=== PATIENT | male | born 1985 ===

== ENCOUNTER 2017-07-04 19:07 | Emergency (ER) | payer SELFPAY ==
[2017-07-04 19:26] VITALS: BP 143/89; PULSE 86; RESP 16; TEMP 98; O2SAT 100
--- NOTE | 2017-07-04 19:45 | ED PDOC ---
HPI: Psych/Substance Abuse Time Seen by Provider: 07/04/17 19:35 Chief Complaint (Nursing): Anxiety Chief Complaint (Provider): Anxiety History Per: Patient History/Exam Limitations: no limitations Onset/Duration Of Symptoms: Days (x 3) Current Symptoms Are (Timing): Still Present Additional Complaint(s): Jaziel is a 31 y/o male presenting to the ED for evaluation of anxiety. States that two night ago he awoke in the middle of the night feeling anxious and was unable to go back to sleep. He experienced cold sweats, mild shortness of breath and chest tightness, and states he felt tachycardic. Denies dizziness or vision changes, a fever or a rash. PMD: non-[facility] provider Past Medical History Reviewed: Historical Data, Nursing Documentation, Vital Signs Vital Signs: Last Vital Signs Temp 98.0 F 07/04/17 19:25 Pulse 86 07/04/17 19:25 Resp 16 07/04/17 19:25 BP 143/89 07/04/17 19:25 Pulse Ox 100 07/04/17 19:25 - Medical History PMH: Hypercholesterolemia - Surgical History Surgical History: No Surg Hx - Family History Family History: States: Unknown Family Hx - Social History Current smoker - smoking cessation education provided: No Alcohol: None Drugs: Denies - Immunization History Hx Tetanus Toxoid Vaccination: No Hx Influenza Vaccination: No Hx Pneumococcal Vaccination: No - Home Medications Home Medications: Ambulatory Orders Medication Instructions Recorded Benzonatate [Tessalon Perles] 1 sgl PO BID PRN #20 sgl 09/27/14 Ibuprofen [Motrin] 600 mg PO TID #30 tab 09/27/14 Mometasone Furoate [Nasonex] 2 spray NS DAILY #1 bottle 09/27/14 Oseltamivir [Tamiflu] 75 mg PO BID #10 cap 09/27/14 Alprazolam [Xanax] 0.25 mg PO ONCE PRN #8 tablet 07/04/17 - Allergies Allergies/Adverse Reactions: Allergies Allergy/AdvReac Type Severity Reaction Status Date / Time No Known Allergies Allergy Unverified 09/26/14 22:08 Review of Systems ROS Statement: Except As Marked, All Systems Reviewed And Found Negative Constitutional: Positive for: Chills, Sweats (cold). Negative for: Fever Eyes: Negative for: Vision Change Cardiovascular: Positive for: Other (chest tightness, tachycardia) Respiratory: Positive for: Shortness of Breath (mild). Negative for: Cough Skin: Negative for: Rash Neurological: Negative for: Dizziness Psych: Positive for: Anxiety Physical Exam - Reviewed Nursing Documentation Reviewed: Yes Vital Signs Reviewed: Yes - Physical Exam Appears: Positive for: Non-toxic, No Acute Distress Head Exam: Positive for: ATRAUMATIC, NORMAL INSPECTION, NORMOCEPHALIC Skin: Positive for: Normal Color, Warm, DRY Eye Exam: Positive for: EOMI, Normal appearance, PERRL ENT: Positive for: Normal ENT Inspection, TM Is/Are (normal ) Neck: Positive for: Normal, Painless ROM Cardiovascular/Chest: Positive for: Regular Rate, Rhythm. Negative for: Murmur Respiratory: Positive for: Normal Breath Sounds. Negative for: Accessory Muscle Use, Respiratory Distress Extremity: Positive for: Normal ROM. Negative for: Pedal Edema, Deformity Neurologic/Psych: Positive for: Alert, Oriented - Laboratory Results Result Diagrams: 07/04/17 20:15 07/04/17 20:15 - ECG ECG: Positive for: Interpreted By Me, Viewed By Me Interpretation Of Abn EKG: EKG shows early repolarization at the v2, v3, v4, v5 leads O2 Sat by Pulse Oximetry: 100 (RA) Pulse Ox Interpretation: Normal Medical Decision Making Medical Decision Making: Clinical Impression: Anxiety Time: 19:40 Initial Plan: --EKG --Xanax 0.5mg PO Time: 20:05 EKG shows early repolarization at the v2, v3, v4, v5 leads. Will do blood work to r/o hyperkalemia. Upon provider evaluation patient is medically stable, and requires no further treatment in the ED at this time. Pt with normal labs values. pt advised to f/u with pmd and e commerce manager. Patient will be discharged home. Counseling was provided and all questions were answered regarding diagnosis and need for follow up with PMD. There is agreement to discharge plan. Return if symptoms persist or worsen. Scribe Attestation: Documented by Lesley Bone, acting as a scribe for Mery Raymundo PA-C Provider Scribe Attestation: All medical record entries made by the Scribe were at my direction and personally dictated by me. I have reviewed the chart and agree that the record accurately reflects my personal performance of the history, physical exam, medical decision making, and the department course for this patient. I have also personally directed, reviewed, and agree with the discharge instructions and disposition. Disposition - Clinical Impression Clinical Impression: Anxiety - Patient ED Disposition Is Patient to be Admitted: No Counseled Patient/Family Regarding: Diagnosis, Need For Followup - Disposition Disposition: Routine/Home Disposition Time: 20:56 Condition: STABLE Prescriptions: Alprazolam [Xanax] 0.25 mg PO ONCE PRN #8 tablet PRN Reason: Anxiety Instructions: Anxiety (ED) Print Language: KHMER
[2017-07-04 20:26] LABS: BASO # 0.1 K/uL (0.0-0.2); EOS # 0.1 K/uL (0.0-0.7); EOS % 2.5 % (0.0-4.0); HEMATOCRIT 42.9 % (35.0-51.0); LYMPH # 2.1 K/uL (1.0-4.3); LYMPH % 38.8 % (20.0-40.0); MEAN CELL VOLUME 93.1 fl (80.0-94.0); MEAN CORPUSCULAR HEMOGLOBIN 31.2 pg (27.0-31.0); MEAN CORPUSCULAR HGB CONC 33.5 g/dL (33.0-37.0); MEAN PLATELET VOLUME 8.6 fl (7.2-11.7); MONO # 0.7 K/uL (0.0-0.8); MONO % 12.1 % (0.0-10.0); NEUT # 2.5 K/uL (1.8-7.0); NEUT % 45.6 % (50.0-75.0); RED CELL DISTRIBUTION WIDTH 11.6 % (11.5-14.5); WHITE BLOOD COUNT 5.5 K/uL (4.8-10.8)
[2017-07-04 20:42] LABS: ALB/GLOB RATIO 1.6 (1.0-2.1); ALKALINE PHOSPHATASE 45 U/L (38-126); ALT/SGPT 38 U/L (21-72); AST/SGOT 27 U/L (17-59); BILIRUBIN,TOTAL 0.5 mg/dl (0.2-1.3); BLOOD UREA NITROGEN 12 mg/dl (9-20); CALCIUM 10.1 mg/dL (8.4-10.2); CARBON DIOXIDE 31 mmol/L (22-30); CHLORIDE 102 mmol/L (98-107); GFR AFRICAN-AMERICAN > 60; GLUCOSE,RANDOM 99 mg/dL (75-110); SODIUM 144 mmol/l (132-148); TOTAL PROTEIN 8.2 G/DL (6.3-8.2)
--- NOTE | 2017-07-07 12:41 | CARD ---
APPROVED REPORT EKG Measurement Heart [id number] <Conclusion> Sinus bradycardia with sinus arrhythmia Early repolarization Otherwise normal ECG
== END 2017-07-04 21:17 | disposition home or self-care (01) ==
LOC: H.ER 19:07
DX: F41.9 Anxiety disorder, unspecified (principal); E78.00 Pure hypercholesterolemia, unspecified

== ENCOUNTER 2017-10-17 18:24 | Emergency (ER) | payer OTHER ==
--- NOTE | 2017-10-17 19:19 | ED PDOC ---
HPI: Chest Pain Time Seen by Provider: 10/17/17 18:46 Chief Complaint (Nursing): Chest Pain Chief Complaint (Provider): Chest Pin History Per: Patient History/Exam Limitations: no limitations Onset/Duration Of Symptoms: Days (7 days ago) Current Symptoms Are (Timing): Still Present Additional Complaint(s): 32 yo male presents to the ED complaining of intermittent, left-sided chest pain associated with intermittent shortness of breath, onset of 7 days ago. Patient reports that he begins to feel his chest pain usually when driving his struck or when at home, while his shortness of breath is present when he coughs for a prolonged amount of time. He states that his shortness of breath is non- exertional and his experience some relief of his chest pain when he lies down flat. He denies any leg swelling, cough, or fever. Of note, he hasn't taken anything for the pain. Past Medical History Reviewed: Historical Data, Nursing Documentation, Vital Signs Vital Signs: Last Vital Signs Temp 98.2 F 10/17/17 18:39 Pulse 83 10/17/17 19:45 Resp 17 10/17/17 19:45 BP 140/76 10/17/17 19:45 Pulse Ox 98 10/17/17 19:45 - Medical History PMH: Hypercholesterolemia - Surgical History Surgical History: No Surg Hx - Family History Family History: States: Unknown Family Hx - Social History Current smoker - smoking cessation education provided: No Ex-Smoker (has not smoked in the last 12 months): No Alcohol: Social Drugs: Denies - Immunization History Hx Tetanus Toxoid Vaccination: No Hx Influenza Vaccination: No Hx Pneumococcal Vaccination: No - Home Medications Home Medications: Ambulatory Orders Medication Instructions Recorded Benzonatate [Tessalon Perles] 1 sgl PO BID PRN #20 sgl 09/27/14 Ibuprofen [Motrin] 600 mg PO TID #30 tab 09/27/14 Mometasone Furoate [Nasonex] 2 spray NS DAILY #1 bottle 09/27/14 Oseltamivir [Tamiflu] 75 mg PO BID #10 cap 09/27/14 Alprazolam [Xanax] 0.25 mg PO ONCE PRN #8 tablet 07/04/17 Cyclobenzaprine [Cyclobenzaprine 10 mg PO TID PRN #10 tab 10/17/17 HCl] Ibuprofen [Motrin Tab] 600 mg PO Q8 PRN #30 tab 10/17/17 - Allergies Allergies/Adverse Reactions: Allergies Allergy/AdvReac Type Severity Reaction Status Date / Time No Known Allergies Allergy Unverified 09/26/14 22:08 Review of Systems ROS Statement: Except As Marked, All Systems Reviewed And Found Negative Cardiovascular: Positive for: Chest Pain Respiratory: Positive for: Cough, Shortness of Breath. Negative for: SOB with Exertion Physical Exam - Reviewed Nursing Documentation Reviewed: Yes Vital Signs Reviewed: Yes - Physical Exam Appears: Positive for: Non-toxic, No Acute Distress Head Exam: Positive for: ATRAUMATIC, NORMOCEPHALIC Skin: Positive for: Warm, Dry Eye Exam: Positive for: EOMI, PERRL ENT: Positive for: Normal ENT Inspection. Negative for: Nasal Congestion Neck: Positive for: Painless ROM, Supple Cardiovascular/Chest: Positive for: Regular Rate, Rhythm. Negative for: Chest Non Tender (mild left sided chest wall tenderness to palpation), Edema, Murmur Respiratory: Positive for: Normal Breath Sounds. Negative for: Wheezing Gastrointestinal/Abdominal: Positive for: Soft. Negative for: Tenderness Back: Positive for: Normal Inspection. Negative for: Muscle Spasm Extremity: Positive for: Normal ROM. Negative for: Deformity Lymphatic: Negative for: Adenopathy Neurologic/Psych: Positive for: Alert. Negative for: Motor/Sensory Deficits - Laboratory Results Result Diagrams: 10/17/17 19:41 10/17/17 19:41 - ECG ECG Rhythm: Positive for: Sinus Rhythm (normal) Interpretation Of ECG: diffused ST elevations, consistent with benign early repolarization; similar to ekg in June 2017 Rate: 64 O2 Sat by Pulse Oximetry: 100 (RA) Pulse Ox Interpretation: Normal - Radiology X-Ray: Interpreted by Me X-Ray Interpretation: No Acute Disease Medical Decision Making Medical Decision Making: Time: --19:05 Impression: --Chest Pain Differential: --Pulmonary Embolism vs. Pneumothorax vs. costochondritis vs. pericarditis Plan: --VBG --ECG --Labs --B-type natriuretic --Creatine Phosphokinase --magnesium --phosphourous --troponin I --D Dimer --Chest X-ray Two views --Cyclobenzaprine 10 mg PO --Motrin 600mg PO --IV Insertion Reassess -- Scribe Attestation: Documented by Marco Sanchez acting as a scribe for Lia oJyce MD. Provider Attestation: All medical record entries made by the Scribe were at my direction and personally dictated by me. I have reviewed the chart and agree that the record accurately reflects my personal performance of the history, physical exam, medical decision making, and the department course for this patient. I have also personally directed, reviewed, and agree with the discharge instructions and disposition. Disposition - Clinical Impression Clinical Impression: Chest wall pain Counseled Patient/Family Regarding: Studies Performed, Diagnosis, Need For Followup, Rx Given - Disposition Referrals: Minesh Moore MD [Family Provider] - Disposition: Routine/Home Disposition Time: 20:00 Condition: STABLE Prescriptions: Cyclobenzaprine [Cyclobenzaprine HCl] 10 mg PO TID PRN #10 tab PRN Reason: chest tightness Ibuprofen [Motrin Tab] 600 mg PO Q8 PRN #30 tab PRN Reason: Pain, Moderate (4-7) Instructions: Costochondritis (DC) Forms: [employer] (Faroese) Print Language: LATVIAN
[2017-10-17 19:47] LABS: BASO % 0.7 % (0.0-2.0); EOS # 0.1 K/uL (0.0-0.7); EOS % 2.5 % (0.0-4.0); HEMOGLOBIN 14.3 g/dL (12.0-18.0); LYMPH # 2.2 K/uL (1.0-4.3); LYMPH % 48.5 % (20.0-40.0); MEAN CELL VOLUME 93.7 fl (80.0-94.0); MEAN CORPUSCULAR HEMOGLOBIN 31.6 pg (27.0-31.0); MEAN CORPUSCULAR HGB CONC 33.7 g/dL (33.0-37.0); MEAN PLATELET VOLUME 8.7 fl (7.2-11.7); MONO # 0.6 K/uL (0.0-0.8); MONO % 12.9 % (0.0-10.0); NEUT # 1.6 K/uL (1.8-7.0); NEUT % 35.4 % (50.0-75.0); NRBC % 0.1 % (0.0-0.0); RBC 4.53 Mil/uL (4.40-5.90); RED CELL DISTRIBUTION WIDTH 12.3 % (11.5-14.5); WHITE BLOOD COUNT 4.6 K/uL (4.8-10.8)
[2017-10-17 19:58] LABS: ALB/GLOB RATIO 1.5 (1.0-2.1); ALBUMIN 4.9 g/dL (3.5-5.0); ALT/SGPT 41 U/L (21-72); AST/SGOT 29 U/L (17-59); BLOOD UREA NITROGEN 10 mg/dl (9-20); CALCIUM 10.1 mg/dL (8.4-10.2); GFR AFRICAN-AMERICAN > 60; GFR NON-AFRICAN AMERICAN > 60; MAGNESIUM 1.9 MG/DL (1.6-2.3)
[2017-10-17 20:03] LABS: B-TYPE NATRIURETIC PEPTIDE < 11.1 pg/ml (0-450)
[2017-10-17 20:49] LABS: VENOUS BLOOD GAS BASE EXCESS 5.8 mmol/L (0.0-2.0); VENOUS BLOOD GAS PCO2 59 mmHg (40-60); VENOUS BLOOD GAS PO2 25 mm/Hg (30-55); VENOUS BLOOD PH 7.36 (7.32-7.43)
[2017-10-17 21:14] VITALS: BP 114/71; PULSE 71; RESP 16; TEMP 98.4; O2SAT 99
--- NOTE | 2017-10-18 11:02 | RAD ---
HISTORY: chest pain COMPARISON: No prior. TECHNIQUE: Chest PA and lateral FINDINGS: LUNGS: No active pulmonary disease. PLEURA: No significant pleural effusion identified. No pneumothorax apparent. CARDIOVASCULAR: Normal. OSSEOUS STRUCTURES: No significant abnormalities. VISUALIZED UPPER ABDOMEN: Normal. OTHER FINDINGS: None. IMPRESSION: No active disease.
--- NOTE | 2017-10-20 12:23 | CARD ---
APPROVED REPORT EKG Measurement Heart [id number] <Conclusion> Sinus rhythm with premature atrial complexes Acute pericarditis Abnormal ECG
== END 2017-10-17 21:14 | disposition home or self-care (01) ==
LOC: H.ER 18:24
DX: R07.89 Other chest pain (principal); E78.00 Pure hypercholesterolemia, unspecified; I49.1 Atrial premature depolarization; Z87.891 Personal history of nicotine dependence